=== PATIENT | female | born 1995 | race Caucasian/White ===

== ENCOUNTER 2016-12-26 12:02 | Emergency (ER) | payer OTHER ==
[~2016-12-26] VITALS: Ht 157.5 cm; Wt 59.0 kg
[2016-12-26 12:24] VITALS: BP 162/81; PULSE 54; RESP 20; TEMP 98.4; O2SAT 99
[2016-12-26 12:43] LABS: BACTERIA, URINE MOD /hpf; BLOOD, URINE NEG (NEG); COMMENT (UR) CULTURE INDICATED; CULTURE IF INDICATED CULTURE INDICATED; GLUCOSE,URINE NEG (NEG); KETONE, URINE NEG (NEG); NITRITE,URINE NEG (NEG); SQUAMOUS EPITHELIAL CELL URINE 1 /hpf (0-5); URINE COLOR LIGHT-YELLOW (YELLW/STRAW)
[2016-12-26] MEDS ORDERED: SODIUM CHLOR 0.9% 1000 ML INJ 1,000 ML IV SCH (13:27)
[2016-12-26] MEDS ORDERED: MORPHINE SULFATE 4 MG/ML INJ IV PUSH ONE (13:30)
[2016-12-26] MEDS ORDERED: ONDANSETRON HCL 4 MG/2 ML VIAL IVP ONE (13:30)
[2016-12-26 13:38] VITALS: BP 111/70; PULSE 80; RESP 17; O2SAT 100
[2016-12-26 14:03] LABS: AUTOMATED NEUTROPHIL # 2.9 TH/MM3 (1.8-7.7); EOSINOPHIL % 0.6 % (0.0-4.0); HEMATOCRIT 41.3 % (35.0-46.0); HEMO FLAGS DIFF FINAL; LYMPH % 29.8 % (9.0-44.0); LYMPHOCYTE # 1.5 TH/MM3 (1.0-4.8); MEAN CELL VOLUME 92.2 FL (80.0-100.0); MEAN CORPUSCULAR HEMOGLOBIN 31.5 PG (27.0-34.0); MEAN CORPUSCULAR HGB CONC 34.2 % (32.0-36.0); MONO % 11.7 % (0.0-8.0); NEUT % 56.9 % (16.0-70.0); PLATELET COUNT 295 TH/MM3 (150-450); RED BLOOD COUNT 4.48 MIL/MM3 (4.00-5.30); RED CELL DISTRIBUTION WIDTH 12.9 % (11.6-17.2); WHITE BLOOD COUNT 5.1 TH/MM3 (4.0-11.0)
[2016-12-26 14:22] LABS: ALT (GPT) 24 U/L (10-53); ANION GAP 8 MEQ/L (5-15); AST (GOT) 21 U/L (15-37); BICARBONATE 27.7 MEQ/L (21.0-32.0); BLOOD UREA NITROGEN 9 MG/DL (7-18); CHLORIDE 104 MEQ/L (98-107); GLOMERULAR FILTRATION RATE 101 ML/MIN (>89); POTASSIUM 3.5 MEQ/L (3.5-5.1); SODIUM (NA) 140 MEQ/L (136-145)
[2016-12-26 14:23] LABS: ALKALINE PHOSPHATASE 79 U/L (45-117); TOTAL BILIRUBIN ADULT 0.7 MG/DL (0.2-1.0)
[2016-12-26 14:38] VITALS: RESP 14
[2016-12-26] MEDS ORDERED: IOHEXOL 350 MG/ML 10 ML VIAL (for RAD DIAG) IV ONE (15:00)
--- NOTE | 2016-12-26 15:01 | PD ---
HPI Chief Complaint: Abdominal Pain Time Seen by Provider: 15:00 Travel History International Travel<30 days: No Contact w/Intl Traveler<30days: No Traveled to known affect area: No History of Present Illness HPI 21-year-old female that presents to the ED for evaluation of right lower quadrant abdominal pain. Per patient she was seen in an urgent care before coming here and she was told to come here for evaluation of possible appendicitis versus ovarian cyst. Per patient she had a pelvic exam as well as a urine beta did not show any sign of infection. She denies possibility of that she cannot completely rule it out. She denies any recent injury. No vaginal discharge or bleeding. She states that the pain is in the right lower quadrant. Per patient she's never had surgeries. No allergies to medication. Per patient the pain is achy 4 out of 10. No bowel movement issues. No urinary issues. No back pain. No headache. No fevers chills or sweats. Per patient the pain was more excruciating during the night and it is now. Per patient seems to be improving. Patient mainly here because urgent care recommended that she comes here to get evaluated for possible appendicitis. [facility] Past Medical History Medical History: Denies Significant Hx Diminished Hearing: No Tetanus Vaccination: Unknown Influenza Vaccination: No ?: Unknown LMP: 12/01/16 Past Surgical History Surgical History: No Previous Surgery Social History Alcohol Use: No Tobacco Use: No Substance Use: No Allergies-Medications (Allergen,Severity, Reaction): Coded Allergies: No Known Allergies (Unverified , 12/26/16) Reported Meds & Prescriptions Reported Meds & Active Scripts Active No Active Prescriptions or Reported Medications Review of Systems Except as stated in HPI: all other systems reviewed are Neg Physical Exam Narrative GENERAL: SKIN: Warm and dry. HEAD: Atraumatic. Normocephalic. EYES: Pupils equal and round. No scleral icterus. No injection or drainage. ENT: No nasal bleeding or discharge. Mucous membranes pink and moist. Tongue is midline. No uvula deviation. NECK: Trachea midline. No JVD. CARDIOVASCULAR: Regular rate and rhythm. No murmurs, S3, S4. RESPIRATORY: No accessory muscle use. Clear to auscultation. Breath sounds equal bilaterally. GASTROINTESTINAL: Abdomen soft, tender to palpation on the right lower quadrant , nondistended. Hepatic and splenic margins not palpable. MUSCULOSKELETAL: Extremities without clubbing, cyanosis, or edema. No obvious deformities. Full range of motion of the upper and lower extremities bilaterally. 2+ pulses bilaterally. NEUROLOGICAL: Awake and alert. No obvious cranial nerve deficits. Motor grossly within normal limits. Five out of 5 muscle strength in the arms and legs. Normal speech. PSYCHIATRIC: Appropriate mood and affect; insight and judgment normal. Data Data Last Documented VS Vital Signs Date Time Temp Pulse Resp B/P Pulse Ox O2 Delivery O2 Flow Rate FiO2 12/26/16 14:38 14 12/26/16 13:38 80 111/70 100 Room Air 12/26/16 12:24 98.4 Orders Comprehensive Metabolic Panel (12/26/16 12:18) Urinalysis - C+S If Indicated (12/26/16 12:18) Ed Urine Pregnancytest Poc (12/26/16 12:18) Urine Culture (12/26/16 12:17) Complete Blood Count With Diff (12/26/16 13:27) Comprehensive Metabolic Panel (12/26/16 13:27) Lipase (12/26/16 13:27) Ct Abd/Pel W Iv Contrast(Rout) (12/26/16 13:27) Iv Access Insert/Monitor (12/26/16 13:27) Morphine Inj (Morphine Inj) (12/26/16 13:30) Ondansetron Inj (Zofran Inj) (12/26/16 13:30) Sodium Chlor 0.9% 1000 Ml Inj (Ns 1000 M (12/26/16 13:27) Iohexol 350 Inj (Omnipaque 350 Inj) (12/26/16 15:00) Labs Laboratory Tests Test 12/26/16 12/26/16 12:17 13:40 Urine Color LIGHT-YELLOW Urine Turbidity CLEAR Urine pH 6.0 Urine Specific [place] 1.006 Urine Protein NEG mg/dL Urine Glucose (UA) NEG mg/dL Urine Ketones NEG mg/dL Urine Occult Blood NEG Urine Nitrite NEG Urine Bilirubin NEG Urine Urobilinogen LESS THAN 2.0 MG/DL Urine Leukocyte Esterase MOD Urine RBC 2 /hpf Urine WBC 3 /hpf Urine Squamous Epithelial 1 /hpf Cells Urine Bacteria MOD /hpf Microscopic Urinalysis Comment CULTURE INDICATED White Blood Count 5.1 TH/MM3 Red Blood Count 4.48 MIL/MM3 Hemoglobin 14.1 GM/DL Hematocrit 41.3 % Mean Corpuscular Volume 92.2 FL Mean Corpuscular Hemoglobin 31.5 PG Mean Corpuscular Hemoglobin 34.2 % Concent Red Cell Distribution Width 12.9 % Platelet Count 295 TH/MM3 Mean Platelet Volume 7.4 FL Neutrophils (%) (Auto) 56.9 % Lymphocytes (%) (Auto) 29.8 % Monocytes (%) (Auto) 11.7 % Eosinophils (%) (Auto) 0.6 % Basophils (%) (Auto) 1.0 % Neutrophils # (Auto) 2.9 TH/MM3 Lymphocytes # (Auto) 1.5 TH/MM3 Monocytes # (Auto) 0.6 TH/MM3 Eosinophils # (Auto) 0.0 TH/MM3 Basophils # (Auto) 0.0 TH/MM3 CBC Comment DIFF FINAL Differential Comment Sodium Level 140 MEQ/L Potassium Level 3.5 MEQ/L Chloride Level 104 MEQ/L Carbon Dioxide Level 27.7 MEQ/L Anion Gap 8 MEQ/L Blood Urea Nitrogen 9 MG/DL Creatinine 0.73 MG/DL Estimat Glomerular Filtration 101 ML/MIN Rate Random Glucose 75 MG/DL Calcium Level 9.0 MG/DL Total Bilirubin 0.7 MG/DL Aspartate Amino Transf 21 U/L (AST/SGOT) Alanine Aminotransferase 24 U/L (ALT/SGPT) Alkaline Phosphatase 79 U/L Total Protein 8.1 GM/DL Albumin 4.4 GM/DL Lipase 191 U/L [facility] Medical Decision Making Medical Screen Exam Complete: Yes Emergency Medical Condition: Yes Medical Record Reviewed: Yes Interpretation(s) Urine showed possible UTI with leukocyte esterase and bacteria but no nitrites CBC & BMP Diagram 12/26/16 13:40 LFTS and lipase WNL Last Impressions Abdomen/Pelvis CT 12/26/16 1327 Signed Impressions: Service Date/Time: Monday, December 26, 2016 14:43 - CONCLUSION: 1. Periportal edema involve the liver. This can be seen with aggressive crystalloid administration. 2. Trace amount of free fluid adjacent to the tip of the liver. 3. No acute abnormality. Ihsan Grider Jr., MD Differential Diagnosis Appendicitis versus cyst versus UTI versus cystitis versus acute abdomen versus normal exam Narrative Course 21-year-old female that presents to the ED for evaluation of right lower quadrant pain. Patient was properly examined and was found to have signs and symptoms concerning for possible appendicitis. Labs and imaging were ordered. Labs and imaging showed signs and symptoms consistent with UTI. No sign of appendicitis either on blood work or on CT scan. At this time I do not believe this is appendicitis. Likely urinary tract infection. patient is in no distress. Case discussed with my attending Dr Mota who was made aware of all findings and history and agrees with discharge. Patient will be discharged from a perception for Bactrim and diclofenac sodium. Told to follow with PCP. Patient was instructed that if anything worsens she is to come back to the ED. She agrees and understands this plan. See ED if worst. Diagnosis Primary Impression: Cystitis Additional Impression: RLQ discomfort Patient Instructions: General Instructions, Narcotic given in the ED Additional Instructions: Take meds as prescribed. Follow up closely with PCP. See ED for any worsening symptoms. Especially if pain does not improve or gets worse. Med/Other Pt SpecificInfo: Prescription(s) given Scripts Diclofenac Sodium DR 75 Mg Tabdr75 Mg PO BID PRN (PAIN SCALE 1 TO 10) #20 TAB Prov:Corazon Mota MD 12/26/16 Sulfamethoxazole-Trimethoprim (Bactrim DS)800-160 Mg Tab1 Tab PO BID 7 Days Prov:Corazon Mota MD 12/26/16 Disposition: 01 DISCHARGE HOME Condition: Stable [place] Sandra Dec 26, 2016 15:00
--- NOTE | 2016-12-26 15:32 | RADRPT ---
EXAM DATE/TIME: 12/26/2016 14:43 [facility] COMPARISON: No previous studies available for comparison. INDICATIONS : Lower abdomen pain today. IV CONTRAST: 69 cc Omnipaque 350 (iohexol) IV ORAL CONTRAST: No oral contrast ingested. RADIATION DOSE: 5.00 CTDIvol (mGy) MEDICAL HISTORY : None SURGICAL HISTORY : None. ENCOUNTER: Initial ACUITY: 1 day PAIN SCALE: 6/10 LOCATION: Bilateral lower quadrant TECHNIQUE: Volumetric scanning of the abdomen and pelvis was performed. Using automated exposure control and ad justment of the mA and/or kV according to patient size, radiation dose was kept as low as reasonably achievable to obtain optimal diagnostic quality images. DICOM format image data is available electro nically for review and comparison. FINDINGS: LOWER LUNGS: The visualized lower lungs are clear. LIVER: Periportal edema observed. Homogeneous density without lesion. There is no dilation of the biliary t ree. No calcified gallstones. A trace amount of free fluid is seen adjacent to the tip of the liver. SPLEEN: Normal size without lesion. PANCREAS: Within normal limits. KIDNEYS: Normal in size and shape. There is no mass, stone or hydronephrosis. ADRENAL GLANDS: Within normal limits. VASCULAR: There is no aortic aneurysm. BOWEL/MESENTERY: The stomach, small bowel, and colon demonstrate no acute abnormality. There is no free intraperitone al air or fluid. Appendix is normal by CT criteria. ABDOMINAL WALL: Within normal limits. RETROPERITONEUM: There is no lymphadenopathy. BLADDER: No wall thickening or mass. REPRODUCTIVE: Within normal limits. INGUINAL: There is no lymphadenopathy or hernia. MUSCULOSKELETAL: Within normal limits for patient age. CONCLUSION: 1. Periportal edema involve the liver. This can be seen with aggressive crystalloid administration. 2. Trace amount of free fluid adjacent to the tip of the liver. 3. No acute abnormality. Ihsan Grider Jr., MD on December 26, 2016 at 15:27 Board Certified Radiologist. This report was verified electronically.
[2016-12-26] MEDS ORDERED: BACT800T5 PO (15:48)
[2016-12-26] MEDS ORDERED: DICL75TA PO (15:48)
== END 2016-12-26 16:31 | disposition home or self-care (01) ==
LOC: NEPD 12:02
DX: N30.90 Cystitis, unspecified without hematuria (principal); R10.31 Right lower quadrant pain
CPT/HCPCS: 74177; 80053; 81001; 83690; 84703; 85025; 87086; 96361; 96374; 96375; 99285; J2270; J2405; J7030; Q9967